=== PATIENT | male | born 1970 | race African-American/Black ===

== ENCOUNTER 2017-09-08 07:06 | Inpatient (IN) ==
[2017-09-08] MEDS ORDERED: MORPHINE 4 MG/1 ML VIAL IV STA (07:32)
[2017-09-08] MEDS ORDERED: SODIUM CHLORIDE 0.9% 1,000 ML IV STA (07:32)
[2017-09-08] MEDS ORDERED: ONDANSETRON 4 MG/2 ML VIAL IV STA (07:32)
[2017-09-08 07:53] LABS: Basophils # 0.1 10*3/uL (0.0-0.2); Basophils % 1.2 % (0.0-0.8); Eosinophils % 0.5 % (0.00-10.9); Hematocrit 32.3 VOL% (42.0-52.0); Hemoglobin 11.4 GM/DL (14.0-18.0); Immature Granulocytes % 0.4 %; Immature Granulocytes Absolute 0.03 #; Lymphocytes # 2.3 10*3/uL (1.4-4.0); Lymphocytes % 27.4 % (21.2-54.2); Mean Corpuscular HGB Conc 35.3 GM/DL (32-36); Mean Corpuscular Hemoglobin 34 PG (27-34); Mean Corpuscular Volume 97.6 FL (87-102); Mean Platelet Volume 10.3 FL (9.6-12.0); Monocytes # 0.6 10*3/uL (0.11-0.8); Monocytes % 7.1 % (1.7-12.7); Neutrophils # 5.4 10*3/uL (1.4-7.4); Neutrophils % 63.4 % (38.7-73.9); Platelet Count 213 T/CUMM (130-400); Red Blood Count 3.31 MC/CUMM (3.8-5.5); Red Cell Distribution Width 14.8 % (9.3-17.3); White Blood Count 8.4 T/CUMM (4-12)
[2017-09-08 08:06] LABS: Partial Thromboplastin Time 27.8 SECS (0-40)
[2017-09-08 08:21] LABS: INR 1.2; PT Patient Result 12.9 SECS
[2017-09-08 09:15] LABS: Albumin 2.9 G/DL (3.4-5.0); Bilirubin,Total 3.3 MG/DL (0.2-1.0); Calcium 7.7 MG/DL (8.5-10.1); Osmolality,Calculated 267.4 MOS/KG (273-304); Potassium 4.6 MMOL/L (3.5-5.1)
[2017-09-08 10:00] LABS: Total Protein 7.5 G/DL (6.4-8.3)
[2017-09-08] MEDS ORDERED: NICOTINE 21 MG/24 HR PATCH TRANSDERM PRN (10:30)
[2017-09-08 11:15] LABS: Thyroid Stimulating Hormone 2.03 uIU/ml (0.358-3.74)
[2017-09-08 11:19] LABS: Folate 3.5 NG/ML (5.4-24.0)
[2017-09-08] MEDS: SODIUM CHLORIDE 0.9% 1,000 ML IV SCH ×2 (14:10→23:49)
[2017-09-08] MEDS ORDERED: ONDANSETRON 4 MG/2 ML VIAL IV PRN (14:13)
[2017-09-08] MEDS ORDERED: PANTOPRAZOLE 40 MG VIAL IV SCH (14:13)
[2017-09-08 15:29] LABS: Hepatitis A Ab IgM Quant 0.17 Index; Hepatitis A Ab IgM Result Negative (Negative); Hepatitis B Core IgM Result Negative (Negative); Hepatitis B Surface Ag Quant 0.29 Index; Hepatitis B Surface Ag Result Negative (Negative); Hepatitis C Virus Ab Quant 0.03 Index; Hepatitis C Virus Ab Result Negative (Negative)
[2017-09-08] MEDS: chlordiazePOXIDE 25 MG CAPSULE PO PRN ×2 (15:54→21:00)
[2017-09-08 19:59] LABS: Hematocrit 30.2 VOL% (42.0-52.0); Hemoglobin 10.7 GM/DL (14.0-18.0)
[2017-09-08] MEDS: diphenhydrAMINE CAP 25 MG CAPSULE PO PRN (21:00)
[2017-09-09 00:09] LABS: % Iron Saturation 82.4 % (18-50)
[2017-09-09 01:07] LABS: Basophils # 0.1 10*3/uL (0.0-0.2); Basophils % 1.2 % (0.0-0.8); Eosinophils # 0.1 10*3/uL (0.0-0.87); Eosinophils % 1.1 % (0.00-10.9); Hematocrit 27.9 VOL% (42.0-52.0); Hematocrit 28.1 VOL% (42.0-52.0); Hemoglobin 9.4 GM/DL (14.0-18.0); Immature Granulocytes % 0.4 %; Immature Granulocytes Absolute 0.03 #; Lymphocytes # 2.8 10*3/uL (1.4-4.0); Lymphocytes % 33.7 % (21.2-54.2); Mean Corpuscular HGB Conc 33.7 GM/DL (32-36); Mean Corpuscular Hemoglobin 33 PG (27-34); Mean Corpuscular Volume 98.2 FL (87-102); Mean Platelet Volume 10.5 FL (9.6-12.0); Monocytes # 0.7 10*3/uL (0.11-0.8); Monocytes % 7.8 % (1.7-12.7); Neutrophils # 4.7 10*3/uL (1.4-7.4); Neutrophils % 55.8 % (38.7-73.9); Platelet Count 180 T/CUMM (130-400); Red Blood Count 2.84 MC/CUMM (3.8-5.5); Red Cell Distribution Width 14.6 % (9.3-17.3); White Blood Count 8.4 T/CUMM (4-12)
[2017-09-09 01:18] LABS: Albumin 2.6 G/DL (3.4-5.0); Bilirubin,Total 3.8 MG/DL (0.2-1.0); Calcium 7.8 MG/DL (8.5-10.1); Osmolality,Calculated 263.5 MOS/KG (273-304); Potassium 3.8 MMOL/L (3.5-5.1); Risk Ratio 20.58; Total Protein 6.6 G/DL (6.4-8.3); VLDL CHOLESTEROL 128.6 MG/DL
[2017-09-09 02:37] LABS: Apearance,Urine CLEAR (Clear); Bilirubin,Urine Negative (Negative); Blood, Urine Small mg/dL (Negative); Glucose,Urine (UA) Negative (Negative); Hyaline Casts,Urine 2 /LPF (0-3); Ketones,Urine Negative (Negative); Mucus,Urine Occasional /LPF (Occasional); Nitrite,Urine Negative (Negative); Protein,Urine Negative; RBC,Urine <1 /HPF (0-4); Squamous Epithelial Cell,Urine Occasional /HPF (0-10); Urine Color Amber (Yellow); Urine Specific Gravity 1.025 (1.001-1.035); WBC,Urine <1 /HPF (0-6)
[2017-09-09] MEDS ORDERED: LORazepam 2 MG/1 ML VIAL IV PRN (07:44)
[2017-09-09] MEDS ORDERED: LIDOCAINE 1% 5 ML VIAL ONE (08:45)
[2017-09-09] MEDS ORDERED: PROPOFOL 200 MG/20 ML VIAL IV ONE (08:45)
[2017-09-09] MEDS ORDERED: PANTOPRAZOLE 40 MG VIAL IV SCH (09:00)
[2017-09-09] MEDS ORDERED: NON-FORMULARY MEDICATION (Omeprazole [Prilosec] 20 MG) PO SCH (09:00)
[2017-09-09 10:16] LABS: Hematocrit 32.1 VOL% (42.0-52.0); Hemoglobin 10.5 GM/DL (14.0-18.0)
[2017-09-09] MEDS: SODIUM CHLORIDE 0.9% 1,000 ML IV SCH ×2 (10:47→22:17)
[2017-09-09] MEDS: amLODIPine 10 MG TABLET PO SCH (10:47)
[2017-09-09] MEDS: THIAMINE 200 MG/2 ML VIAL IV SCH (10:47)
[2017-09-09] MEDS: BISACODYL 5 MG TABLET PO SCH ×2 (10:48→17:29)
[2017-09-09 17:01] LABS: Hematocrit 28.9 VOL% (42.0-52.0); Hemoglobin 9.6 GM/DL (14.0-18.0)
[2017-09-09] MEDS ORDERED: POLYETHYLENE GLYCOL POWDER 255 GM BOTTLE PO ONE (18:00)
[2017-09-09] MEDS ORDERED: MAGNESIUM CITRATE 300 ML BOTTLE PO ONE (21:00)
[2017-09-09] MEDS: diphenhydrAMINE CAP 25 MG CAPSULE PO PRN (22:18)
[2017-09-09] MEDS: FOLIC ACID 1 MG TABLET PO SCH (22:18)
[2017-09-09] MEDS: MULTIVITAMIN (CENTRUM) TABLET PO SCH (22:18)
[2017-09-10] MEDS: BISACODYL 5 MG TABLET PO SCH (00:48)
[2017-09-10 01:26] LABS: Hematocrit 28.1 VOL% (42.0-52.0); Hemoglobin 9.3 GM/DL (14.0-18.0)
[2017-09-10] MEDS: SODIUM CHLORIDE 0.9% 1,000 ML IV SCH (02:54)
[2017-09-10] MEDS: MULTIVITAMIN (CENTRUM) TABLET PO SCH (08:38)
[2017-09-10] MEDS: amLODIPine 10 MG TABLET PO SCH (08:38)
[2017-09-10] MEDS: THIAMINE 200 MG/2 ML VIAL IV SCH (08:38)
[2017-09-10] MEDS: FOLIC ACID 1 MG TABLET PO SCH (08:39)
[2017-09-10] MEDS ORDERED: PANTOPRAZOLE 40 MG TABLET PO SCH (09:00)
[2017-09-10] MEDS ORDERED: LIDOCAINE 1% 5 ML VIAL ONE (09:00)
[2017-09-10] MEDS ORDERED: PROPOFOL 200 MG/20 ML VIAL IV ONE (09:00)
[2017-09-10 09:36] LABS: Hematocrit 31.1 VOL% (42.0-52.0); Hemoglobin 10.2 GM/DL (14.0-18.0)
[2017-09-10 12:24] VITALS: BP 119/80
== END 2017-09-10 13:00 | disposition home or self-care (01) | DRG 254 ==
LOC: N.ED 07:06 → N.EDINP 10:06 → N.5E 15:00
PROVIDERS: ADMIT Internal Medicine Geriatric Medicine; ATTEND Internal Medicine Geriatric Medicine

== ENCOUNTER 2017-09-26 06:42 | Inpatient (IN) ==
[2017-09-26] MEDS ORDERED: MORPHINE 4 MG/1 ML VIAL IV ONE (06:53)
[2017-09-26] MEDS ORDERED: ONDANSETRON 4 MG/2 ML VIAL IV ONE ×2 (06:53→07:52)
[2017-09-26] MEDS ORDERED: SODIUM CHLORIDE 0.9% 1,000 ML IV STA (06:53)
[2017-09-26 07:56] LABS: Basophils # 0.1 10*3/uL (0.0-0.2); Basophils % 1.4 % (0.0-0.8); Eosinophils % 0.5 % (0.00-10.9); Hematocrit 35.1 VOL% (42.0-52.0); Immature Granulocytes % 0.8 %; Immature Granulocytes Absolute 0.07 #; Lymphocytes # 1.6 10*3/uL (1.4-4.0); Lymphocytes % 19.1 % (21.2-54.2); Mean Corpuscular Hemoglobin 34 PG (27-34); Mean Platelet Volume 10.7 FL (9.6-12.0); Monocytes # 0.5 10*3/uL (0.11-0.8); Monocytes % 5.9 % (1.7-12.7); NRBC # 0.11 10*3/uL; Neutrophils # 6.2 10*3/uL (1.4-7.4); Neutrophils % 72.3 % (38.7-73.9); Platelet Count 256 T/CUMM (130-400); Red Blood Count 3.62 MC/CUMM (3.8-5.5); Red Cell Distribution Width 14.9 % (9.3-17.3); White Blood Count 8.5 T/CUMM (4-12)
[2017-09-26 08:00] LABS: Hemoglobin 12.3 GM/DL (14.0-18.0)
[2017-09-26 08:15] LABS: INR 1.3
[2017-09-26 08:16] LABS: PT Patient Result 13.1 SECS
[2017-09-26 08:19] LABS: Bilirubin,Total 3.2 MG/DL (0.2-1.0); Calcium 7.1 MG/DL (8.5-10.1); Osmolality,Calculated 266.7 MOS/KG (273-304); Potassium 4.3 MMOL/L (3.5-5.1)
[2017-09-26] MEDS ORDERED: MORPHINE 4 MG/1 ML VIAL IV STA ×2 (10:24)
[2017-09-26] MEDS ORDERED: ONDANSETRON 4 MG/2 ML VIAL IV STA ×2 (10:24)
[2017-09-26] MEDS ORDERED: hydrALAZINE 20 MG/1 ML VIAL IV PRN (12:24)
[2017-09-26] MEDS: HEPARIN 5,000 UNIT/1 ML VIAL SUBCUT SCH ×2 (14:04→21:45)
[2017-09-26] MEDS: SODIUM CHLORIDE 0.9% 1,000 ML IV SCH ×2 (14:06→23:34)
[2017-09-26] MEDS: metroNIDAZOLE INJ 500 MG in PREMIX 1 EACH IV SCH ×3 (14:12→23:35)
[2017-09-26 15:18] LABS: Apearance,Urine CLEAR (Clear); Bilirubin,Urine Negative (Negative); Blood, Urine Negative (Negative); Glucose,Urine (UA) Negative (Negative); Granular Casts,Urine 1 /LPF (0-1); Hyaline Casts,Urine 12 /LPF (0-3); Ketones,Urine Negative (Negative); Nitrite,Urine Negative (Negative); Protein,Urine Negative; RBC,Urine 1 /HPF (0-4); Squamous Epithelial Cell,Urine Occasional /HPF (0-10); Urine Color Amber (Yellow); Urine Specific Gravity 1.048 (1.001-1.035); WBC,Urine 1 /HPF (0-6)
[2017-09-26] MEDS: MORPHINE 4 MG/1 ML VIAL IV PRN ×2 (17:37→20:50)
[2017-09-26] MEDS: PANTOPRAZOLE 40 MG VIAL IV SCH (20:52)
[2017-09-27] MEDS: HEPARIN 5,000 UNIT/1 ML VIAL SUBCUT SCH ×4 (05:31→23:03)
[2017-09-27] MEDS: metroNIDAZOLE INJ 500 MG in PREMIX 1 EACH IV SCH ×3 (05:32→20:47)
[2017-09-27 06:00] LABS: Basophils # 0.1 10*3/uL (0.0-0.2); Basophils % 1.4 % (0.0-0.8); Eosinophils # 0.1 10*3/uL (0.0-0.87); Eosinophils % 1.2 % (0.00-10.9); Hematocrit 31.4 VOL% (42.0-52.0); Hemoglobin 10.6 GM/DL (14.0-18.0); Immature Granulocytes % 0.4 %; Immature Granulocytes Absolute 0.03 #; Lymphocytes # 1.7 10*3/uL (1.4-4.0); Lymphocytes % 23.2 % (21.2-54.2); Mean Corpuscular HGB Conc 33.8 GM/DL (32-36); Mean Corpuscular Hemoglobin 34 PG (27-34); Mean Platelet Volume 10.7 FL (9.6-12.0); Monocytes # 0.6 10*3/uL (0.11-0.8); Monocytes % 8.1 % (1.7-12.7); Neutrophils # 4.8 10*3/uL (1.4-7.4); Neutrophils % 65.7 % (38.7-73.9); Platelet Count 199 T/CUMM (130-400); Red Blood Count 3.14 MC/CUMM (3.8-5.5); Red Cell Distribution Width 14.8 % (9.3-17.3); White Blood Count 7.3 T/CUMM (4-12)
[2017-09-27 06:34] LABS: Albumin 2.9 G/DL (3.4-5.0); Calcium 7.7 MG/DL (8.5-10.1); Osmolality,Calculated 267.4 MOS/KG (273-304); Potassium 3.7 MMOL/L (3.5-5.1); Total Protein 7.1 G/DL (6.4-8.3)
[2017-09-27] MEDS: MORPHINE 4 MG/1 ML VIAL IV PRN ×3 (06:34→20:51)
[2017-09-27] MEDS ORDERED: amLODIPine 10 MG TABLET PO SCH (09:00)
[2017-09-27] MEDS ORDERED: PANTOPRAZOLE 40 MG VIAL IV SCH (09:00)
[2017-09-27] MEDS ORDERED: PANTOPRAZOLE 40 MG TABLET PO SCH (09:00)
[2017-09-27] MEDS: PANTOPRAZOLE 40 MG VIAL IV SCH ×2 (09:52→20:44)
[2017-09-27] MEDS: THIAMINE 200 MG/2 ML VIAL IV SCH (09:54)
[2017-09-27] MEDS: ONDANSETRON 4 MG/2 ML VIAL IV PRN (09:59)
[2017-09-27] MEDS: ALBUTEROL/IPRATROPIUM 3 ML NEB RESP TX SCH ×3 (14:37→23:05)
[2017-09-27] MEDS: SODIUM CHLORIDE 0.9% 1,000 ML IV SCH (15:30)
[2017-09-28] MEDS: metroNIDAZOLE INJ 500 MG in PREMIX 1 EACH IV SCH ×3 (02:21→14:16)
[2017-09-28] MEDS: SODIUM CHLORIDE 0.9% 1,000 ML IV SCH ×3 (02:22→17:53)
[2017-09-28] MEDS: ALBUTEROL/IPRATROPIUM 3 ML NEB RESP TX SCH ×6 (03:00→23:36)
[2017-09-28] MEDS: MORPHINE 4 MG/1 ML VIAL IV PRN ×2 (04:12→11:26)
[2017-09-28] MEDS: HEPARIN 5,000 UNIT/1 ML VIAL SUBCUT SCH ×2 (05:55→14:16)
[2017-09-28] MEDS: PANTOPRAZOLE 40 MG VIAL IV SCH ×2 (11:25→20:36)
[2017-09-28] MEDS: THIAMINE 200 MG/2 ML VIAL IV SCH (11:25)
[2017-09-28] MEDS: ONDANSETRON 4 MG/2 ML VIAL IV PRN (11:27)
[2017-09-28] MEDS ORDERED: CYCLOBENZAPRINE 10 MG TABLET PO PRN (13:26)
[2017-09-28] MEDS: LACTULOSE 20 GM/30 ML UDCUP PO SCH (20:35)
[2017-09-29 01:54] LABS: Basophils % 0.5 % (0.0-0.8); Eosinophils % 0.5 % (0.00-10.9); Hemoglobin 10.6 GM/DL (14.0-18.0); Immature Granulocytes % 0.3 %; Immature Granulocytes Absolute 0.03 #; Lymphocytes # 1.6 10*3/uL (1.4-4.0); Lymphocytes % 18.7 % (21.2-54.2); Mean Corpuscular HGB Conc 35.3 GM/DL (32-36); Mean Corpuscular Hemoglobin 35 PG (27-34); Mean Corpuscular Volume 97.7 FL (87-102); Mean Platelet Volume 10.9 FL (9.6-12.0); Monocytes # 0.4 10*3/uL (0.11-0.8); Monocytes % 4.8 % (1.7-12.7); Neutrophils # 6.5 10*3/uL (1.4-7.4); Neutrophils % 75.2 % (38.7-73.9); Platelet Count 171 T/CUMM (130-400); Red Blood Count 3.07 MC/CUMM (3.8-5.5); Red Cell Distribution Width 14.4 % (9.3-17.3); White Blood Count 8.6 T/CUMM (4-12)
[2017-09-29 02:05] LABS: Bilirubin,Total 4.1 MG/DL (0.2-1.0); Calcium 8.5 MG/DL (8.5-10.1); Osmolality,Calculated 268.1 MOS/KG (273-304); Potassium 3.6 MMOL/L (3.5-5.1)
[2017-09-29] MEDS: ALBUTEROL/IPRATROPIUM 3 ML NEB RESP TX SCH ×6 (04:27→23:13)
[2017-09-29] MEDS: LORazepam 2 MG/1 ML VIAL IV PRN ×2 (06:27→18:18)
[2017-09-29] MEDS: THIAMINE 200 MG/2 ML VIAL IV SCH (09:37)
[2017-09-29] MEDS: PANTOPRAZOLE 40 MG VIAL IV SCH ×2 (09:44→20:15)
[2017-09-29] MEDS: LACTULOSE 20 GM/30 ML UDCUP PO SCH ×2 (15:30→20:14)
[2017-09-29] MEDS: CEFEPIME 2,000 MG in SYRINGE 1 EACH IV SCH ×2 (16:12→23:26)
[2017-09-29] MEDS: AZITHROMYCIN INJ 500 MG in SODIUM CHLORIDE 0.9% 250 ML IV SCH (16:16)
[2017-09-30] MEDS: ALBUTEROL/IPRATROPIUM 3 ML NEB RESP TX SCH ×5 (03:29→19:42)
[2017-09-30 06:45] LABS: Basophils # 0.1 10*3/uL (0.0-0.2); Basophils % 0.6 % (0.0-0.8); Eosinophils # 0.2 10*3/uL (0.0-0.87); Eosinophils % 1.9 % (0.00-10.9); Hemoglobin 10.4 GM/DL (14.0-18.0); Immature Granulocytes % 0.3 %; Immature Granulocytes Absolute 0.03 #; Lymphocytes # 1.9 10*3/uL (1.4-4.0); Lymphocytes % 22.4 % (21.2-54.2); Mean Corpuscular HGB Conc 32.5 GM/DL (32-36); Mean Corpuscular Hemoglobin 33 PG (27-34); Mean Corpuscular Volume 102.6 FL (87-102); Mean Platelet Volume 11.8 FL (9.6-12.0); Monocytes # 0.6 10*3/uL (0.11-0.8); Monocytes % 6.8 % (1.7-12.7); Neutrophils # 5.9 10*3/uL (1.4-7.4); Platelet Count 169 T/CUMM (130-400); Red Blood Count 3.12 MC/CUMM (3.8-5.5); Red Cell Distribution Width 14.4 % (9.3-17.3); White Blood Count 8.6 T/CUMM (4-12)
[2017-09-30] MEDS ORDERED: DIAZEPAM 5 MG TABLET PO ONE (07:00)
[2017-09-30 07:28] LABS: Albumin 2.9 G/DL (3.4-5.0); Calcium 8.9 MG/DL (8.5-10.1); Potassium 3.4 MMOL/L (3.5-5.1); Total Protein 7.1 G/DL (6.4-8.3)
[2017-09-30] MEDS: ONDANSETRON 4 MG/2 ML VIAL IV PRN (08:30)
[2017-09-30] MEDS: PANTOPRAZOLE 40 MG VIAL IV SCH ×2 (08:33→21:21)
[2017-09-30] MEDS: THIAMINE 200 MG/2 ML VIAL IV SCH (08:36)
[2017-09-30] MEDS: MORPHINE 4 MG/1 ML VIAL IV PRN (10:10)
[2017-09-30] MEDS: CEFEPIME 2,000 MG in SYRINGE 1 EACH IV SCH ×3 (10:14→23:13)
[2017-09-30] MEDS: LACTULOSE 20 GM/30 ML UDCUP PO SCH ×2 (10:20→21:20)
[2017-09-30] MEDS: AZITHROMYCIN INJ 500 MG in SODIUM CHLORIDE 0.9% 250 ML IV SCH (18:27)
[2017-10-01] MEDS: ALBUTEROL/IPRATROPIUM 3 ML NEB RESP TX SCH ×4 (00:05→10:55)
[2017-10-01 05:40] LABS: Basophils # 0.1 10*3/uL (0.0-0.2); Basophils % 0.6 % (0.0-0.8); Eosinophils # 0.2 10*3/uL (0.0-0.87); Eosinophils % 2.3 % (0.00-10.9); Hematocrit 31.8 VOL% (42.0-52.0); Hemoglobin 10.6 GM/DL (14.0-18.0); Immature Granulocytes % 0.4 %; Immature Granulocytes Absolute 0.03 #; Lymphocytes # 1.8 10*3/uL (1.4-4.0); Lymphocytes % 22.3 % (21.2-54.2); Mean Corpuscular HGB Conc 33.3 GM/DL (32-36); Mean Corpuscular Hemoglobin 33 PG (27-34); Mean Platelet Volume 11.6 FL (9.6-12.0); Monocytes # 0.7 10*3/uL (0.11-0.8); Monocytes % 8.5 % (1.7-12.7); Neutrophils # 5.3 10*3/uL (1.4-7.4); Neutrophils % 65.9 % (38.7-73.9); Platelet Count 160 T/CUMM (130-400); Red Blood Count 3.18 MC/CUMM (3.8-5.5); Red Cell Distribution Width 14.1 % (9.3-17.3)
[2017-10-01 06:23] LABS: Bilirubin,Total 2.2 MG/DL (0.2-1.0); Calcium 8.3 MG/DL (8.5-10.1); Osmolality,Calculated 272.7 MOS/KG (273-304); Potassium 3.7 MMOL/L (3.5-5.1); Total Protein 7.2 G/DL (6.4-8.3)
[2017-10-01] MEDS: LACTULOSE 20 GM/30 ML UDCUP PO SCH (09:14)
[2017-10-01] MEDS: THIAMINE 200 MG/2 ML VIAL IV SCH (09:15)
[2017-10-01] MEDS: PANTOPRAZOLE 40 MG VIAL IV SCH (09:17)
[2017-10-01] MEDS: CEFEPIME 2,000 MG in SYRINGE 1 EACH IV SCH (09:19)
[2017-10-01 12:37] VITALS: BP 121/59
== END 2017-10-01 13:45 | disposition home or self-care (01) | DRG 251 ==
LOC: EDBD → EDUNIT# → N.ED 06:42 → N.EDINP 10:32 → SUATTDRO 10:32 → N.4E 11:32
PROVIDERS: ADMIT Internal Medicine; ATTEND Internal Medicine

== ENCOUNTER 2018-03-25 05:31 | Observation (INO) ==
[2018-03-25] MEDS ORDERED: ONDANSETRON 4 MG/2 ML VIAL IV PRN ×2 (06:22→09:40)
[2018-03-25] MEDS ORDERED: ASPIRIN 325 MG TABLET PO STA (06:22)
[2018-03-25] MEDS ORDERED: ALUM/MAG/SIMETH/LIDO VISC 1:1 30 ML BOTTLE PO STA (06:22)
[2018-03-25] MEDS ORDERED: METOPROLOL TARTRATE 5 MG/5 ML VIAL IV STA (06:28)
[2018-03-25] MEDS: MORPHINE 4 MG/1 ML VIAL IV PRN ×2 (06:35→22:20)
[2018-03-25 06:52] LABS: Basophils # 0.1 10*3/uL (0.0-0.2); Eosinophils # 0.1 10*3/uL (0.0-0.87); Eosinophils % 0.7 % (0.00-10.9); Hematocrit 38.3 VOL% (42.0-52.0); Hemoglobin 13.1 GM/DL (14.0-18.0); Immature Granulocytes % 0.6 %; Immature Granulocytes Absolute 0.04 #; Lymphocytes # 3.1 10*3/uL (1.4-4.0); Lymphocytes % 43.6 % (21.2-54.2); Mean Corpuscular HGB Conc 34.2 GM/DL (32-36); Mean Corpuscular Hemoglobin 30 PG (27-34); Mean Corpuscular Volume 88.7 FL (87-102); Mean Platelet Volume 9.8 FL (9.6-12.0); Monocytes # 0.6 10*3/uL (0.11-0.8); Monocytes % 8.8 % (1.7-12.7); Neutrophils # 3.2 10*3/uL (1.4-7.4); Neutrophils % 45.3 % (38.7-73.9); Platelet Count 291 T/CUMM (130-400); Red Blood Count 4.32 MC/CUMM (3.8-5.5); Red Cell Distribution Width 13.7 % (9.3-17.3)
[2018-03-25 06:57] LABS: Barbiturates Screen,Urine Negative (Negative); Benzodiazepines Screen,Urine Negative (Negative); Cannabinoid Screen,Urine Negative (Negative); Opiate Screen,Urine Negative (Negative); Phencyclidine Screen,Urine Negative (Negative)
[2018-03-25 07:01] LABS: Albumin 4.3 G/DL (3.4-5.0); Bilirubin,Total 0.8 MG/DL (0.2-1.0); Calcium 9.3 MG/DL (8.5-10.1); Osmolality,Calculated 277.7 MOS/KG (273-304); Potassium 4.5 MMOL/L (3.5-5.1); Total Protein 8.2 G/DL (6.4-8.3)
[2018-03-25 07:14] LABS: Partial Thromboplastin Time 27.2 SECS (0-40)
[2018-03-25 07:14] LABS: Apearance,Urine CLEAR (Clear); Bacteria,Urine Occasional /HPF (Few); Bilirubin,Urine Negative (Negative); Blood, Urine Small mg/dL (Negative); Glucose,Urine (UA) Negative (Negative); Ketones,Urine Negative (Negative); Mucus,Urine Occasional /LPF (Occasional); Nitrite,Urine Negative (Negative); Protein,Urine Negative; RBC,Urine <1 /HPF (0-4); Squamous Epithelial Cell,Urine Occasional /HPF (0-10); Urine Color Yellow (Yellow); Urine Specific Gravity 1.017 (1.001-1.035); Urine Urobilinogen < 2.0 EU/DL (0.2-1.0); WBC,Urine 1 /HPF (0-6)
[2018-03-25] MEDS ORDERED: ACETAMINOPHEN 325 MG TABLET PO PRN (09:40)
[2018-03-25] MEDS ORDERED: ALBUTEROL/IPRATROPIUM 3 ML NEB RESP TX ONE (10:06)
[2018-03-25] MEDS: SODIUM CHLORIDE 0.9% 1,000 ML IV SCH ×2 (10:56→20:15)
[2018-03-25] MEDS: methylPREDNISolone SOD SUC 40 MG/1 ML VIAL IV SCH (13:44)
[2018-03-25] MEDS ORDERED: LEVOFLOXACIN INJ 750 MG in PREMIX 1 EACH IV SCH (15:30)
[2018-03-25] MEDS: ALBUTEROL/IPRATROPIUM 3 ML NEB RESP TX SCH (22:00)
[2018-03-26] MEDS: ALBUTEROL/IPRATROPIUM 3 ML NEB RESP TX SCH ×2 (01:53→07:25)
[2018-03-26] MEDS: methylPREDNISolone SOD SUC 40 MG/1 ML VIAL IV SCH (02:33)
[2018-03-26 04:29] LABS: Basophils % 0.1 % (0.0-0.8); Hematocrit 39.5 VOL% (42.0-52.0); Hemoglobin 13.4 GM/DL (14.0-18.0); Immature Granulocytes % 0.4 %; Immature Granulocytes Absolute 0.03 #; Lymphocytes # 1.5 10*3/uL (1.4-4.0); Lymphocytes % 20.2 % (21.2-54.2); Mean Corpuscular HGB Conc 33.9 GM/DL (32-36); Mean Corpuscular Hemoglobin 30 PG (27-34); Mean Corpuscular Volume 89.2 FL (87-102); Mean Platelet Volume 9.6 FL (9.6-12.0); Monocytes # 0.3 10*3/uL (0.11-0.8); Neutrophils # 5.5 10*3/uL (1.4-7.4); Neutrophils % 75.3 % (38.7-73.9); Platelet Count 283 T/CUMM (130-400); Red Blood Count 4.43 MC/CUMM (3.8-5.5); Red Cell Distribution Width 13.3 % (9.3-17.3); White Blood Count 7.3 T/CUMM (4-12)
[2018-03-26] MEDS: SODIUM CHLORIDE 0.9% 1,000 ML IV SCH (04:36)
[2018-03-26] MEDS: MORPHINE 4 MG/1 ML VIAL IV PRN (04:43)
[2018-03-26 04:51] LABS: Calcium 8.7 MG/DL (8.5-10.1); Osmolality,Calculated 269.2 MOS/KG (273-304); Potassium 4.1 MMOL/L (3.5-5.1)
[2018-03-26] MEDS ORDERED: PANTOPRAZOLE 40 MG TABLET PO SCH (09:00)
[2018-03-26 12:05] VITALS: BP 111/71
== END 2018-03-26 12:39 | disposition home or self-care (01) ==
LOC: N.ED 05:31 → N.EDINP 05:31 → N.TELEN 10:04
PROVIDERS: ADMIT Internal Medicine Infectious Disease; ATTEND Internal Medicine Infectious Disease

== ENCOUNTER 2019-09-23 14:25 | Observation (INO) ==
[2019-09-23] MEDS ORDERED: methylPREDNISolone SOD SUC 125 MG/2 ML VIAL IV STA (14:38)
[2019-09-23] MEDS ORDERED: ALBUTEROL 2.5 MG/3 ML NEB RESP TX STA (14:38)
[2019-09-23 14:48] LABS: Basophils # 0.1 10*3/uL (0.0-0.2); Eosinophils # 0.2 10*3/uL (0.0-0.87); Eosinophils % 1.6 % (0.00-10.9); Hematocrit 37.1 VOL% (42.0-52.0); Hemoglobin 12.3 GM/DL (14.0-18.0); Immature Granulocytes % 0.4 %; Immature Granulocytes Absolute 0.04 #; Lymphocytes # 2.4 10*3/uL (1.4-4.0); Lymphocytes % 24.4 % (21.2-54.2); Mean Corpuscular HGB Conc 33.2 GM/DL (32-36); Mean Corpuscular Volume 95.9 FL (87-102); Mean Platelet Volume 10.1 FL (9.6-12.0); Monocytes % 10.6 % (1.7-12.7); Platelet Count 245 T/CUMM (130-400); Red Blood Count 3.87 MC/CUMM (3.8-5.5); Red Cell Distribution Width 12.4 % (9.3-17.3)
[2019-09-23 15:05] LABS: Calcium 8.4 MG/DL (8.5-10.1); Osmolality,Calculated 278.4 MOS/KG (273-304)
[2019-09-23] MEDS ORDERED: guaiFENesin/DM ER 600-30 MG TABLET PO PRN (16:23)
[2019-09-23] MEDS ORDERED: ONDANSETRON 4 MG/2 ML VIAL IV PRN (16:23)
[2019-09-23] MEDS ORDERED: DEXTROSE 50% 25 GM/50 ML VIAL IV PRN (16:23)
[2019-09-23] MEDS ORDERED: ALUMINUM/MAGNES/SIMETH MAX STR 30 ML UDCUP PO PRN (16:23)
[2019-09-23] MEDS ORDERED: LACTULOSE 20 GM/30 ML UDCUP PO PRN (16:23)
[2019-09-23] MEDS ORDERED: hydrALAZINE 20 MG/1 ML VIAL IV PRN (16:23)
[2019-09-23] MEDS ORDERED: NICOTINE 21 MG/24 HR PATCH TRANSDERM PRN (16:23)
[2019-09-23] MEDS ORDERED: GLUCAGON 1 MG VIAL IM PRN (16:23)
[2019-09-23] MEDS ORDERED: ACETAMINOPHEN 325 MG TABLET PO PRN (16:23)
[2019-09-23] MEDS ORDERED: SIMETHICONE CHEW 125 MG TABLET PO PRN (16:23)
[2019-09-23] MEDS ORDERED: DOCUSATE SODIUM 100 MG CAPSULE PO PRN (16:23)
[2019-09-23] MEDS ORDERED: diphenhydrAMINE CAP 25 MG CAPSULE PO PRN (16:23)
[2019-09-23] MEDS ORDERED: BISACODYL 5 MG TABLET PO PRN (16:23)
[2019-09-23] MEDS ORDERED: ASPIRIN 325 MG TABLET PO STA (16:29)
[2019-09-23] MEDS ORDERED: ENOXAPARIN 40 MG/0.4 ML SYRINGE SUBCUT SCH (16:30)
[2019-09-23 17:13] LABS: Folate 4.8 NG/ML (5.4-24.0)
[2019-09-23] MEDS: methylPREDNISolone SOD SUC 125 MG/2 ML VIAL IV SCH ×2 (17:15→23:00)
[2019-09-23 17:49] LABS: Barbiturates Screen,Urine Negative (Negative); Benzodiazepines Screen,Urine Negative (Negative); Cannabinoid Screen,Urine Negative (Negative); Opiate Screen,Urine Negative (Negative); Phencyclidine Screen,Urine Negative (Negative)
[2019-09-23 17:53] LABS: Apearance,Urine CLEAR (Clear); Bilirubin,Urine Negative (Negative); Blood, Urine Negative (Negative); Glucose,Urine (UA) Negative (Negative); Ketones,Urine Negative (Negative); Mucus,Urine Occasional /LPF (Occasional); Nitrite,Urine Negative (Negative); Protein,Urine Negative; Squamous Epithelial Cell,Urine Occasional /HPF (0-10); Urine Color Yellow (Yellow); Urine Specific Gravity 1.016 (1.001-1.035)
[2019-09-23] MEDS: SODIUM CHLORIDE 0.9% 1,000 ML IV SCH (20:10)
[2019-09-23] MEDS: chlordiazePOXIDE 25 MG CAPSULE PO SCH (20:11)
[2019-09-23] MEDS: ALBUTEROL/IPRATROPIUM 3 ML NEB RESP TX SCH (20:33)
[2019-09-23] MEDS: FLUTICASONE/SALMETEROL 500-50 DISKUS 14 DOSE INH SCH (21:31)
[2019-09-24] MEDS: chlordiazePOXIDE 25 MG CAPSULE PO SCH ×4 (00:34→17:49)
[2019-09-24] MEDS: ALBUTEROL/IPRATROPIUM 3 ML NEB RESP TX SCH ×4 (02:05→20:03)
[2019-09-24] MEDS: methylPREDNISolone SOD SUC 125 MG/2 ML VIAL IV SCH ×4 (05:31→23:30)
[2019-09-24 06:16] LABS: Basophils % 0.1 % (0.0-0.8); Hematocrit 40.1 VOL% (42.0-52.0); Hemoglobin 13.1 GM/DL (14.0-18.0); Immature Granulocytes % 0.6 %; Immature Granulocytes Absolute 0.07 #; Lymphocytes # 0.8 10*3/uL (1.4-4.0); Lymphocytes % 6.7 % (21.2-54.2); Mean Corpuscular HGB Conc 32.7 GM/DL (32-36); Mean Corpuscular Volume 95.7 FL (87-102); Mean Platelet Volume 10.6 FL (9.6-12.0); Monocytes % 1.5 % (1.7-12.7); Neutrophils % 91.1 % (38.7-73.9); Platelet Count 244 T/CUMM (130-400); Red Blood Count 4.19 MC/CUMM (3.8-5.5); Red Cell Distribution Width 12.4 % (9.3-17.3)
[2019-09-24 06:50] LABS: Albumin 3.6 G/DL (3.4-5.0); Bilirubin,Total 1.4 MG/DL (0.2-1.0); Calcium 9.1 MG/DL (8.5-10.1); Osmolality,Calculated 270.1 MOS/KG (273-304); Risk Ratio 3.1; Thyroid Stimulating Hormone 1.23 uIU/ml (0.358-3.74); Total Protein 8.1 G/DL (6.4-8.3); VLDL CHOLESTEROL 16.4 MG/DL
[2019-09-24] MEDS ORDERED: ENOXAPARIN 40 MG/0.4 ML SYRINGE SUBCUT SCH (07:00)
[2019-09-24 07:32] LABS: Band Neutrophils 4 % (0-10); Lymphocytes 8 % (20-55); Segmented Neutrophils 86 % (50-85); Total Cells Counted 100
[2019-09-24 07:34] LABS: Platelet Estimate Normal
[2019-09-24] MEDS ORDERED: ENOXAPARIN 120 MG/0.8 ML SYRINGE SUBCUT SCH (09:00)
[2019-09-24] MEDS ORDERED: PNEUMOCOCCAL VACCINE (23 VALENT) 0.5 ML VIAL IM ONE (09:00)
[2019-09-24] MEDS: MULTIVITAMIN (CENTRUM) TABLET PO SCH (09:41)
[2019-09-24] MEDS: SODIUM CHLORIDE 0.9% 1,000 ML IV SCH ×2 (09:41→23:33)
[2019-09-24] MEDS: FOLIC ACID 1 MG TABLET PO SCH (09:42)
[2019-09-24] MEDS: APIXABAN 5 MG TABLET PO SCH ×2 (09:42→21:24)
[2019-09-24] MEDS: amLODIPine 10 MG TABLET PO SCH (09:42)
[2019-09-24] MEDS: PANTOPRAZOLE 40 MG TABLET PO SCH (09:42)
[2019-09-24] MEDS: THIAMINE 100 MG TABLET PO SCH (09:42)
[2019-09-24] MEDS: FLUTICASONE/SALMETEROL 500-50 DISKUS 14 DOSE INH SCH ×2 (09:43→21:24)
[2019-09-24] MEDS ORDERED: ATORVASTATIN 40 MG TABLET PO SCH (21:00)
[2019-09-25] MEDS: chlordiazePOXIDE 25 MG CAPSULE PO SCH ×3 (00:30→11:31)
[2019-09-25] MEDS: ALBUTEROL/IPRATROPIUM 3 ML NEB RESP TX SCH ×2 (00:37→07:20)
[2019-09-25] MEDS: methylPREDNISolone SOD SUC 125 MG/2 ML VIAL IV SCH ×2 (04:31→10:42)
[2019-09-25 06:02] LABS: Basophils % 0.1 % (0.0-0.8); Hematocrit 40.1 VOL% (42.0-52.0); Hemoglobin 12.9 GM/DL (14.0-18.0); Immature Granulocytes % 0.8 %; Lymphocytes # 0.7 10*3/uL (1.4-4.0); Lymphocytes % 5.8 % (21.2-54.2); Mean Corpuscular HGB Conc 32.2 GM/DL (32-36); Mean Corpuscular Volume 98.5 FL (87-102); Mean Platelet Volume 10.7 FL (9.6-12.0); Monocytes % 5.5 % (1.7-12.7); Neutrophils % 87.8 % (38.7-73.9); Platelet Count 235 T/CUMM (130-400); Red Blood Count 4.07 MC/CUMM (3.8-5.5); Red Cell Distribution Width 12.4 % (9.3-17.3); White Blood Count 12.2 T/CUMM (4-12)
[2019-09-25 06:19] LABS: Albumin 3.3 G/DL (3.4-5.0); Bilirubin,Total 1.1 MG/DL (0.2-1.0); Calcium 8.9 MG/DL (8.5-10.1); Osmolality,Calculated 278.7 MOS/KG (273-304); Total Protein 7.5 G/DL (6.4-8.3)
[2019-09-25] MEDS: FOLIC ACID 1 MG TABLET PO SCH (10:41)
[2019-09-25] MEDS: THIAMINE 100 MG TABLET PO SCH (10:41)
[2019-09-25] MEDS: FLUTICASONE/SALMETEROL 500-50 DISKUS 14 DOSE INH SCH (10:42)
[2019-09-25] MEDS: APIXABAN 5 MG TABLET PO SCH (10:42)
[2019-09-25] MEDS: amLODIPine 10 MG TABLET PO SCH (10:42)
[2019-09-25] MEDS: PANTOPRAZOLE 40 MG TABLET PO SCH (10:42)
[2019-09-25] MEDS: MULTIVITAMIN (CENTRUM) TABLET PO SCH (10:42)
[2019-09-25] MEDS: SODIUM CHLORIDE 0.9% 1,000 ML IV SCH (11:42)
[2019-09-25 12:01] VITALS: BP 153/95
[2019-09-25] MEDS ORDERED: RIVAROXABAN 15 MG TABLET PO SCH (17:00)
== END 2019-09-25 12:18 | disposition home or self-care (01) ==
LOC: N.ED 14:25 → N.EDINP 14:25 → SUATTDRO 16:23 → N.3E 18:40
PROVIDERS: ADMIT Internal Medicine; ATTEND Family Medicine

== ENCOUNTER 2019-09-29 09:53 | Observation (INO) ==
[2019-09-29 10:37] LABS: Basophils % 0.3 % (0.0-0.8); Eosinophils # 0.3 10*3/uL (0.0-0.87); Eosinophils % 2.3 % (0.00-10.9); Hematocrit 37.1 VOL% (42.0-52.0); Hemoglobin 12.2 GM/DL (14.0-18.0); Immature Granulocytes % 1.1 %; Immature Granulocytes Absolute 0.13 #; Lymphocytes # 1.9 10*3/uL (1.4-4.0); Lymphocytes % 16.4 % (21.2-54.2); Mean Corpuscular HGB Conc 32.9 GM/DL (32-36); Mean Corpuscular Volume 96.6 FL (87-102); Mean Platelet Volume 10.9 FL (9.6-12.0); Monocytes % 8.9 % (1.7-12.7); Platelet Count 223 T/CUMM (130-400); Red Blood Count 3.84 MC/CUMM (3.8-5.5); Red Cell Distribution Width 12.4 % (9.3-17.3); White Blood Count 11.4 T/CUMM (4-12)
[2019-09-29 10:51] LABS: INR 1.3; PT Patient Result 13.8 SECS (9.8-11.9); Partial Thromboplastin Time 37.5 SECS (23.9-33.8)
[2019-09-29 10:54] LABS: Hypochromasia 1+; Platelet Estimate Adequate
[2019-09-29 11:02] LABS: Albumin 3.3 G/DL (3.4-5.0); Bilirubin,Total 0.7 MG/DL (0.2-1.0); Calcium 8.5 MG/DL (8.5-10.1); Osmolality,Calculated 277.7 MOS/KG (273-304); Total Protein 7.6 G/DL (6.4-8.3)
[2019-09-29 12:57] LABS: Apearance,Urine CLEAR (Clear); Bilirubin,Urine Negative (Negative); Blood, Urine Negative (Negative); Glucose,Urine (UA) Negative (Negative); Ketones,Urine Negative (Negative); Nitrite,Urine Negative (Negative); Protein,Urine Negative; RBC,Urine <1 /HPF (0-4); Squamous Epithelial Cell,Urine Occasional /HPF (0-10); Urine Color Yellow (Yellow); Urine Specific Gravity 1.026 (1.001-1.035)
[2019-09-29 13:09] LABS: Barbiturates Screen,Urine Negative (Negative); Benzodiazepines Screen,Urine Positive (Negative); Cannabinoid Screen,Urine Negative (Negative); Opiate Screen,Urine Negative (Negative); Phencyclidine Screen,Urine Negative (Negative)
[2019-09-29] MEDS ORDERED: ONDANSETRON 4 MG/2 ML VIAL IV PRN (15:16)
[2019-09-29] MEDS ORDERED: GLUCAGON 1 MG VIAL IM PRN (15:16)
[2019-09-29] MEDS ORDERED: DEXTROSE 10% 250 ML BAG IV PRN (15:16)
[2019-09-29] MEDS ORDERED: ACETAMINOPHEN 325 MG TABLET PO PRN (15:16)
[2019-09-29 15:22] LABS: ABG Base Excess 1.4 MMOL/L (-2.5-2.5); ABG HCO3 25.7 MMOL/L (20-26); ABG Oxygen Saturation 96.9 % (95-100); ABG PCO2 39.5 MM HG (35-48); ABG PH 7.431 (7.35-7.45); ABG PO2 95.2 MM HG (80-95); ABG TCO2 26.9 MMOL/L (23-27)
[2019-09-29] MEDS ORDERED: SODIUM POLYSTYRENE SULFATE 15 GM/60 ML BOTTLE PO ONE (16:24)
[2019-09-29] MEDS: NICOTINE 14 MG/24 HR PATCH TRANSDERM SCH (17:47)
[2019-09-29] MEDS: methylPREDNISolone SOD SUC 125 MG/2 ML VIAL IV SCH (17:48)
[2019-09-29 18:05] LABS: Troponin I < 0.015 NG/ML (0.00-0.045)
[2019-09-29 19:16] LABS: Troponin I < 0.015 NG/ML (0.00-0.045)
[2019-09-29] MEDS: ALBUTEROL/IPRATROPIUM 3 ML NEB RESP TX SCH (19:35)
[2019-09-30] MEDS: ALBUTEROL/IPRATROPIUM 3 ML NEB RESP TX SCH ×4 (00:56→20:10)
[2019-09-30] MEDS: methylPREDNISolone SOD SUC 125 MG/2 ML VIAL IV SCH ×2 (04:29→15:00)
[2019-09-30 06:12] LABS: Basophils % 0.1 % (0.0-0.8); Eosinophils % 0.1 % (0.00-10.9); Hematocrit 37.9 VOL% (42.0-52.0); Hemoglobin 12.5 GM/DL (14.0-18.0); Immature Granulocytes Absolute 0.12 #; Lymphocytes # 1.2 10*3/uL (1.4-4.0); Lymphocytes % 10.4 % (21.2-54.2); Mean Corpuscular Volume 95.7 FL (87-102); Mean Platelet Volume 11.1 FL (9.6-12.0); Monocytes % 5.1 % (1.7-12.7); Neutrophils % 83.3 % (38.7-73.9); Platelet Count 215 T/CUMM (130-400); Red Blood Count 3.96 MC/CUMM (3.8-5.5); Red Cell Distribution Width 12.2 % (9.3-17.3); White Blood Count 11.5 T/CUMM (4-12)
[2019-09-30 06:32] LABS: Calcium 8.9 MG/DL (8.5-10.1); Osmolality,Calculated 275.8 MOS/KG (273-304)
[2019-09-30] MEDS: PANTOPRAZOLE 40 MG TABLET PO SCH (10:21)
[2019-09-30] MEDS: NICOTINE 14 MG/24 HR PATCH TRANSDERM SCH (10:21)
[2019-10-01] MEDS: ALBUTEROL/IPRATROPIUM 3 ML NEB RESP TX SCH ×2 (01:24→07:07)
[2019-10-01] MEDS: methylPREDNISolone SOD SUC 125 MG/2 ML VIAL IV SCH (04:24)
[2019-10-01 06:09] LABS: Basophils % 0.2 % (0.0-0.8); Eosinophils % 0.2 % (0.00-10.9); Hematocrit 36.4 VOL% (42.0-52.0); Hemoglobin 12.1 GM/DL (14.0-18.0); Immature Granulocytes % 1.6 %; Immature Granulocytes Absolute 0.17 #; Lymphocytes # 1.9 10*3/uL (1.4-4.0); Lymphocytes % 18.4 % (21.2-54.2); Mean Corpuscular HGB Conc 33.2 GM/DL (32-36); Mean Corpuscular Volume 95.8 FL (87-102); Mean Platelet Volume 11.3 FL (9.6-12.0); Monocytes % 10.9 % (1.7-12.7); Neutrophils % 68.7 % (38.7-73.9); Platelet Count 231 T/CUMM (130-400); Red Cell Distribution Width 12.4 % (9.3-17.3); White Blood Count 10.4 T/CUMM (4-12)
[2019-10-01 06:29] LABS: Calcium 8.8 MG/DL (8.5-10.1); Osmolality,Calculated 282.4 MOS/KG (273-304)
[2019-10-01] MEDS ORDERED: POTASSIUM CHLORIDE 20 MEQ TABLET PO ONE (07:05)
[2019-10-01] MEDS ORDERED: MAGNESIUM SULF RIDER 2 GM in PREMIX 1 EACH IV PRN (07:05)
[2019-10-01] MEDS ORDERED: MAGNESIUM SULF RIDER 4 GM in PREMIX 1 EACH IV PRN (07:05)
[2019-10-01] MEDS ORDERED: RIVAROXABAN 15 MG TABLET PO SCH (08:00)
[2019-10-01 08:18] VITALS: BP 137/100
[2019-10-01] MEDS ORDERED: amLODIPine 10 MG TABLET PO SCH (09:00)
[2019-10-01] MEDS: PANTOPRAZOLE 40 MG TABLET PO SCH (09:38)
[2019-10-01] MEDS: NICOTINE 14 MG/24 HR PATCH TRANSDERM SCH (09:38)
[2019-10-01] MEDS ORDERED: methylPREDNISolone SOD SUC 40 MG/1 ML VIAL IV SCH (16:00)
== END 2019-10-01 12:10 | disposition home or self-care (01) ==
LOC: N.EDINP 09:53 → N.ED 09:53 → SUATTDRO 15:10 → N.EDINP 17:08 → N.3E 17:22
PROVIDERS: ADMIT Family Medicine; ATTEND Emergency Medicine

== ENCOUNTER 2019-12-05 06:55 | Observation (INO) ==
[2019-12-05] MEDS ORDERED: PANTOPRAZOLE 40 MG VIAL IV STA (07:18)
[2019-12-05] MEDS ORDERED: ONDANSETRON 4 MG/2 ML VIAL IV STA (07:18)
[2019-12-05] MEDS ORDERED: SODIUM CHLORIDE 0.9% 1,000 ML IV STA (07:18)
[2019-12-05 07:45] LABS: Basophils # 0.1 10*3/uL (0.0-0.2); Basophils % 0.9 % (0.0-0.8); Eosinophils # 0.4 10*3/uL (0.0-0.87); Eosinophils % 3.6 % (0.00-10.9); Hematocrit 42.7 VOL% (42.0-52.0); Hemoglobin 14.4 GM/DL (14.0-18.0); Immature Granulocytes % 0.5 %; Immature Granulocytes Absolute 0.05 #; Lymphocytes # 1.8 10*3/uL (1.4-4.0); Lymphocytes % 17.9 % (21.2-54.2); Mean Corpuscular HGB Conc 33.7 GM/DL (32-36); Mean Corpuscular Volume 93.8 FL (87-102); Mean Platelet Volume 10.6 FL (9.6-12.0); Monocytes % 8.6 % (1.7-12.7); Neutrophils % 68.5 % (38.7-73.9); Platelet Count 269 T/CUMM (130-400); Red Blood Count 4.55 MC/CUMM (3.8-5.5); Red Cell Distribution Width 11.9 % (9.3-17.3); White Blood Count 10.1 T/CUMM (4-12)
[2019-12-05 07:51] LABS: INR 1.2; PT Patient Result 13.1 SECS (9.8-11.9); Partial Thromboplastin Time 34.1 SECS (23.9-33.8)
[2019-12-05 07:57] LABS: Bilirubin,Total 1.1 MG/DL (0.2-1.0); Calcium 9.4 MG/DL (8.5-10.1); Total Protein 8.1 G/DL (6.4-8.3)
[2019-12-05 08:14] LABS: Hypochromasia 1+; Platelet Estimate Adequate
[2019-12-05] MEDS ORDERED: DEXTROSE 50% 25 GM/50 ML VIAL IV PRN (09:15)
[2019-12-05] MEDS ORDERED: GLUCAGON 1 MG VIAL IM PRN (09:15)
[2019-12-05] MEDS ORDERED: ONDANSETRON 4 MG/2 ML VIAL IV PRN (09:15)
[2019-12-05] MEDS ORDERED: hydrALAZINE 20 MG/1 ML VIAL IV PRN (09:15)
[2019-12-05] MEDS ORDERED: LORazepam 2 MG/1 ML VIAL IV PRN (09:15)
[2019-12-05] MEDS ORDERED: MORPHINE 4 MG/1 ML VIAL IV PRN (09:15)
[2019-12-05] MEDS ORDERED: NICOTINE 21 MG/24 HR PATCH TRANSDERM PRN (09:15)
[2019-12-05 10:44] LABS: Folate 8.3 NG/ML (5.4-24.0)
[2019-12-05 11:15] LABS: Hematocrit 40.1 VOL% (42.0-52.0); Hemoglobin 13.3 GM/DL (14.0-18.0)
[2019-12-05 11:27] LABS: Barbiturates Screen,Urine Negative (Negative); Benzodiazepines Screen,Urine Negative (Negative); Cannabinoid Screen,Urine Negative (Negative); Opiate Screen,Urine Negative (Negative); Phencyclidine Screen,Urine Negative (Negative)
[2019-12-05] MEDS: SODIUM CHLORIDE 0.9% 1,000 ML IV SCH ×2 (14:37→21:59)
[2019-12-05 17:33] LABS: Hematocrit 39.5 VOL% (42.0-52.0); Hemoglobin 12.9 GM/DL (14.0-18.0)
[2019-12-06 02:11] LABS: Basophils # 0.1 10*3/uL (0.0-0.2); Basophils % 0.9 % (0.0-0.8); Eosinophils # 0.4 10*3/uL (0.0-0.87); Eosinophils % 4.6 % (0.00-10.9); Hematocrit 39.5 VOL% (42.0-52.0); Hemoglobin 13.1 GM/DL (14.0-18.0); Immature Granulocytes % 0.4 %; Immature Granulocytes Absolute 0.03 #; Lymphocytes # 1.6 10*3/uL (1.4-4.0); Lymphocytes % 19.8 % (21.2-54.2); Mean Corpuscular HGB Conc 33.2 GM/DL (32-36); Mean Corpuscular Volume 94.5 FL (87-102); Mean Platelet Volume 10.9 FL (9.6-12.0); Monocytes % 9.5 % (1.7-12.7); Neutrophils % 64.8 % (38.7-73.9); Platelet Count 213 T/CUMM (130-400); Red Blood Count 4.18 MC/CUMM (3.8-5.5); Red Cell Distribution Width 11.9 % (9.3-17.3)
[2019-12-06 02:38] LABS: INR 1.2
[2019-12-06 02:41] LABS: Albumin 3.4 G/DL (3.4-5.0); Bilirubin,Total 0.9 MG/DL (0.2-1.0); Calcium 8.6 MG/DL (8.5-10.1); Osmolality,Calculated 272.7 MOS/KG (273-304); Risk Ratio 4.55; Thyroid Stimulating Hormone 2.93 uIU/ml (0.358-3.74); Total Protein 7.6 G/DL (6.4-8.3); VLDL CHOLESTEROL 24.8 MG/DL
[2019-12-06] MEDS: SODIUM CHLORIDE 0.9% 1,000 ML IV SCH (05:28)
[2019-12-06 07:48] VITALS: BP 126/86
[2019-12-06] MEDS ORDERED: MAGNESIUM SULF RIDER 2 GM in PREMIX 1 EACH IV PRN (08:54)
[2019-12-06] MEDS ORDERED: MAGNESIUM SULF RIDER 4 GM in PREMIX 1 EACH IV PRN (08:54)
[2019-12-06] MEDS ORDERED: PANTOPRAZOLE 40 MG VIAL IV SCH (09:00)
[2019-12-06] MEDS ORDERED: FOLIC ACID 1 MG TABLET PO SCH (09:00)
[2019-12-06] MEDS ORDERED: amLODIPine 10 MG TABLET PO SCH (09:00)
== END 2019-12-06 13:01 | disposition home or self-care (01) ==
LOC: N.EDINP 06:55 → N.ED 06:55 → N.TELES 12:45
PROVIDERS: ADMIT Internal Medicine; ATTEND Internal Medicine

== ENCOUNTER 2019-12-08 22:22 | Observation (INO) ==
[2019-12-08] MEDS ORDERED: PANTOPRAZOLE 40 MG VIAL IV STA (22:47)
[2019-12-08 23:09] LABS: Basophils # 0.1 10*3/uL (0.0-0.2); Eosinophils # 0.3 10*3/uL (0.0-0.87); Eosinophils % 3.6 % (0.00-10.9); Hematocrit 38.8 VOL% (42.0-52.0); Hemoglobin 12.8 GM/DL (14.0-18.0); Immature Granulocytes % 0.4 %; Immature Granulocytes Absolute 0.04 #; Lymphocytes # 2.2 10*3/uL (1.4-4.0); Lymphocytes % 23.8 % (21.2-54.2); Mean Corpuscular Volume 93.9 FL (87-102); Neutrophils % 60.2 % (38.7-73.9); Platelet Count 225 T/CUMM (130-400); Red Blood Count 4.13 MC/CUMM (3.8-5.5); Red Cell Distribution Width 11.8 % (9.3-17.3); White Blood Count 9.3 T/CUMM (4-12)
[2019-12-08 23:18] LABS: Albumin 3.6 G/DL (3.4-5.0); Bilirubin,Total 0.6 MG/DL (0.2-1.0); Calcium 9.2 MG/DL (8.5-10.1); Osmolality,Calculated 272.8 MOS/KG (273-304); Total Protein 7.8 G/DL (6.4-8.3)
[2019-12-08 23:19] LABS: INR 1.2; PT Patient Result 12.7 SECS (9.8-11.9)
[2019-12-09] MEDS ORDERED: ONDANSETRON 4 MG/2 ML VIAL IV PRN (00:54)
[2019-12-09] MEDS ORDERED: GLUCAGON 1 MG VIAL IM PRN (00:54)
[2019-12-09] MEDS ORDERED: ACETAMINOPHEN 325 MG TABLET PO PRN (00:54)
[2019-12-09] MEDS ORDERED: DEXTROSE 50% 25 GM/50 ML VIAL IV PRN (00:54)
[2019-12-09] MEDS ORDERED: LORazepam 2 MG/1 ML VIAL IV PRN (01:20)
[2019-12-09 06:45] LABS: Hematocrit 38.7 VOL% (42.0-52.0); Hemoglobin 12.8 GM/DL (14.0-18.0)
[2019-12-09 07:32] LABS: Hemoglobin 13.3 GM/DL (14.0-18.0)
[2019-12-09] MEDS ORDERED: FOLIC ACID 1 MG TABLET PO SCH (09:00)
[2019-12-09] MEDS ORDERED: PANTOPRAZOLE 40 MG VIAL IV SCH (09:00)
[2019-12-09] MEDS ORDERED: THIAMINE 100 MG TABLET PO SCH (09:00)
[2019-12-09] MEDS ORDERED: amLODIPine 10 MG TABLET PO SCH (09:00)
[2019-12-09] MEDS ORDERED: MULTIVITAMIN (CENTRUM) TABLET PO SCH (09:00)
[2019-12-09] MEDS ORDERED: BUDESONIDE/FORMOTEROL 80-4.5 INHALER 6.9 GM INH SCH (09:00)
[2019-12-09 13:51] VITALS: BP 146/90
[2019-12-09 14:02] LABS: Hematocrit 37.6 VOL% (42.0-52.0); Hemoglobin 12.5 GM/DL (14.0-18.0)
== END 2019-12-09 14:57 | disposition home or self-care (01) ==
LOC: EDBD → EDUNIT# → N.EDINP 22:22 → N.ED 22:22 → N.EDINP 12-09 04:19 → N.4E 12-09 04:33
PROVIDERS: ADMIT Internal Medicine; ATTEND Internal Medicine